=== PATIENT | male | born 1945 | race Caucasian/White ===

== ENCOUNTER 2017-01-01 10:48 | Inpatient (IN) | payer OTHER, MEDICARE ==
[~2017-01-01] VITALS: Ht 175.3 cm; Wt 57.6 kg
[~2017-01-01 10:48] MED LIST: CRESTOR5 MG PO; Coreg PO; Diabeta,Micronase PO; Ecotrin PO; GLUCOPHAGE500 MG PO; HYZAAR 100-21 TABLET PO; PLAVIX75 MG PO
[2017-01-01 11:08] LABS: POINT-OF-CARE METER ID UU14100415
[2017-01-01 12:32] LABS: HEMATOCRIT 40.3 % (38.0-50.0); MCH 30.7 PG (29.0-34.0); MCHC 32.3 G/DL (30.0-36.0); RBC DIS.WIDTH-CV 12.3 % (11.8-14.6); RBC DIS.WIDTH-SD 43.6 % (39-53); RED BLOOD COUNT 4.24 M/uL (4.00-5.50); WHITE BLOOD COUNT 7.1 K/uL (4.1-10.2)
[2017-01-01 12:35] LABS: CHLORIDE 97 mEq/L (99-109); POTASSIUM 3.9 mEq/L (3.7-5.4); SODIUM 138 mEq/L (136-147)
[2017-01-01 12:36] LABS: INTER. NORMALIZED RATIO 1.1; PROTHROMBIN TIME 11.6 (9.2-11.2)
[2017-01-01 12:37] LABS: GLUCOSE 126 mg/dL (70-99)
[2017-01-01 12:38] LABS: ANION GAP 6 MEQ/L (2-14)
[2017-01-01 12:41] LABS: GFR ESTIMATE (CALCULATED) > 59 mL/min/
[2017-01-01 12:42] LABS: UREA NITROGEN (BUN) 12 mg/dL (9-23)
[2017-01-01 12:48] LABS: TROP-I INTERPRETATION NEGATIVE; TROPONIN-I 0.05 ng/mL (0.0-0.30)
[2017-01-01] MEDS ORDERED: COREG6.25 M1 PO (13:22)
[2017-01-01] MEDS ORDERED: ASPIR-LOW81 MG PO (13:22)
[2017-01-01] MEDS ORDERED: NITROGLYCERIN0.4 MG SL (13:23)
[2017-01-01 13:31] LABS: PLAT.SUFFICIENCY DECREASED; PLATELET COUNT 146 K/uL (156-360)
[2017-01-01 15:30] LABS: ADD MIUA? NO; BILIRUBIN NEGATIVE; BLOOD NEGATIVE; COLOR STRAW ((YELLOW)); GLUCOSE (STRIP) NEGATIVE; KETONES NEGATIVE; LEUKOCYTES NEGATIVE; NITRITE NEGATIVE; PROTEIN (STRIP) NEGATIVE; SPECIFIC GRAVITY 1.006 (1.000-1.030); UCUL ADDED? NO; UROBILINOGEN 0.2 MG/DL (0.2-1.0)
[2017-01-01 15:50] VITALS: BP 174/88
[2017-01-01 19:00] VITALS: BP 123/64; BP 78/48; BP 97/61
[2017-01-01 20:17] LABS: POINT-OF-CARE METER ID UU14162513
[2017-01-01 21:02] LABS: TROP-I INTERPRETATION NEGATIVE; TROPONIN-I 0.03 ng/mL (0.0-0.30)
[2017-01-01 23:38] LABS: POINT-OF-CARE METER ID UU13113831
[2017-01-01 23:48] VITALS: BP 102/59
[2017-01-02] VITALS (12 sets, daily range): BP systolic 76–133; BP diastolic 52–68
[2017-01-02 02:41] LABS: TROP-I INTERPRETATION NEGATIVE; TROPONIN-I 0.05 ng/mL (0.0-0.30)
[2017-01-02 05:54] LABS: POINT-OF-CARE METER ID UU13113831
[2017-01-02 06:02] LABS: EOSINOPHIL (%) 1.6 % (0-5); EOSINOPHIL COUNT 0.1 K/uL (0-0.3); HEMATOCRIT 35.9 % (38.0-50.0); IMMATURE GRANULOCYTE (%) 0.1 % (0.0-0.7); INSTRUMENT ABS NEUTROPHIL CT 4.6 K/uL; LYMPHOCYTE COUNT 2.3 K/uL (1.0-2.8); MCH 31.8 PG (29.0-34.0); MCHC 32.9 G/DL (30.0-36.0); MCV 96.8 FL (86-99); MEAN PLAT.VOLUME 12.2 uM^3 (9.0-12.4); MONOCYTE (%) 6.7 % (3-12); MONOCYTE COUNT 0.5 K/uL (0-0.8); NEUTROPHIL (%) 61.1 % (45-76); NEUTROPHIL COUNT 4.6 K/uL (1.8-6.4); PLATELET COUNT 133 K/uL (156-360); RBC DIS.WIDTH-CV 12.8 % (11.8-14.6); RBC DIS.WIDTH-SD 45.1 % (39-53); RED BLOOD COUNT 3.71 M/uL (4.00-5.50); WHITE BLOOD COUNT 7.5 K/uL (4.1-10.2)
[2017-01-02 06:53] LABS: ALKALINE PHOSPHATASE 32 IU/L (3-129); ANION GAP 8 MEQ/L (2-14); CHLORIDE 100 MEQ/L (99-109); DIRECT BILIRUBIN 0.2 mg/dL (0.0-0.3); GFR ESTIMATE (CALCULATED) > 59 mL/min/; POTASSIUM 3.7 MEQ/L (3.7-5.4); SAMPLE HEMOLYSIS CHECK 0; SAMPLE ICTERIC CHECK 0; SAMPLE LIPEMIA CHECK 0; SODIUM 140 MEQ/L (136-147); UREA NITROGEN (BUN) 10 mg/dL (9-23)
[2017-01-02 07:10] LABS: GLUCOSE 81 mg/dL (70-99)
[2017-01-02 17:55] LABS: POINT-OF-CARE METER ID UU14162636; POINT-OF-CARE USER ID 606021424
[2017-01-02 19:25] LABS: ANION GAP 6 MEQ/L (2-14); CHLORIDE 101 MEQ/L (99-109); MAGNESIUM 1.3 mg/dl (1.3-2.7); SAMPLE HEMOLYSIS CHECK 0; SAMPLE ICTERIC CHECK 0; SAMPLE LIPEMIA CHECK 0; SODIUM 137 MEQ/L (136-147)
[2017-01-02 19:30] LABS: GFR ESTIMATE (CALCULATED) > 59 mL/min/; UREA NITROGEN (BUN) 9 mg/dL (9-23)
[2017-01-02 19:31] LABS: GLUCOSE 128 mg/dL (70-99)
[2017-01-02 20:38] LABS: TROP-I INTERPRETATION POSITIVE; TROPONIN-I 1.94 ng/mL (0.0-0.30)
[2017-01-02 21:43] LABS: POINT-OF-CARE METER ID UU14162636
[2017-01-03] VITALS (17 sets, daily range): BP systolic 86–118; BP diastolic 45–62
[2017-01-03 06:38] LABS: EOSINOPHIL (%) 0.9 % (0-5); EOSINOPHIL COUNT 0.1 K/uL (0-0.3); HEMATOCRIT 36.8 % (38.0-50.0); IMMATURE GRANULOCYTE (%) 0.2 % (0.0-0.7); INSTRUMENT ABS NEUTROPHIL CT 5.9 K/uL; LYMPHOCYTE COUNT 1.5 K/uL (1.0-2.8); MCH 31.3 PG (29.0-34.0); MCHC 31.8 G/DL (30.0-36.0); MCV 98.4 FL (86-99); MEAN PLAT.VOLUME 12.4 uM^3 (9.0-12.4); MONOCYTE (%) 7.6 % (3-12); MONOCYTE COUNT 0.6 K/uL (0-0.8); NEUTROPHIL (%) 72.5 % (45-76); NEUTROPHIL COUNT 5.9 K/uL (1.8-6.4); PLATELET COUNT 126 K/uL (156-360); RBC DIS.WIDTH-CV 13.2 % (11.8-14.6); RBC DIS.WIDTH-SD 47.7 % (39-53); RED BLOOD COUNT 3.74 M/uL (4.00-5.50); WHITE BLOOD COUNT 8.1 K/uL (4.1-10.2)
[2017-01-03 06:49] LABS: TROP-I INTERPRETATION POSITIVE; TROPONIN-I 29.84 ng/mL (0.0-0.30)
[2017-01-03 07:00] LABS: CHLORIDE 106 mEq/L (99-109); SODIUM 141 mEq/L (136-147)
[2017-01-03 07:03] LABS: ANION GAP 7 MEQ/L (2-14)
[2017-01-03 07:04] LABS: GLUCOSE 90 mg/dL (70-99)
[2017-01-03 07:05] LABS: GFR ESTIMATE (CALCULATED) > 59 mL/min/
[2017-01-03 07:06] LABS: UREA NITROGEN (BUN) 10 mg/dL (9-23)
[2017-01-03 07:08] LABS: CREATINE KINASE 747 IU/L (1-294); TOTAL CK 747 IU/L (1-294)
[2017-01-03 07:14] LABS: CK-MB 114.6 ng/mL (0.0-4.9)
[2017-01-03 12:14] LABS: POINT-OF-CARE METER ID UU14162636
[2017-01-03 17:37] LABS: POINT-OF-CARE METER ID UU14162636
[2017-01-04 04:00] VITALS: BP 116/73
[2017-01-04 09:00] VITALS: BP 107/58
[2017-01-04 12:26] VITALS: BP 97/70
[2017-01-04 15:24] VITALS: BP 104/58
[2017-01-04 20:25] VITALS: BP 123/64
[2017-01-04 21:16] LABS: POINT-OF-CARE METER ID UU13113781
[2017-01-04 23:11] VITALS: BP 104/58
[2017-01-05 04:40] VITALS: BP 132/73
[2017-01-05 07:06] LABS: HEMATOCRIT 33.5 % (38.0-50.0); MCH 30.9 PG (29.0-34.0); MCHC 31.9 G/DL (30.0-36.0); MCV 96.8 FL (86-99); MEAN PLAT.VOLUME 12.6 uM^3 (9.0-12.4); PLATELET COUNT 117 K/uL (156-360); RBC DIS.WIDTH-CV 12.9 % (11.8-14.6); RBC DIS.WIDTH-SD 46.3 % (39-53); RED BLOOD COUNT 3.46 M/uL (4.00-5.50); WHITE BLOOD COUNT 7.8 K/uL (4.1-10.2)
[2017-01-05 07:08] VITALS: BP 123/69
[2017-01-05 07:48] LABS: ANION GAP 7 MEQ/L (2-14); CHLORIDE 99 MEQ/L (99-109); GFR ESTIMATE (CALCULATED) > 59 mL/min/; GLUCOSE 88 mg/dL (70-99); POTASSIUM 3.9 MEQ/L (3.7-5.4); SAMPLE HEMOLYSIS CHECK 0; SAMPLE ICTERIC CHECK 0; SAMPLE LIPEMIA CHECK 0; SODIUM 139 MEQ/L (136-147); UREA NITROGEN (BUN) 10 mg/dL (9-23)
[2017-01-05 08:43] LABS: Estimated Average Glucose 120 mg/dL (70-123); HEMOGLOBIN A1c (GLYCOHEMOGLOB) 5.8 % HGB (Below 5.7)
[2017-01-05 09:17] LABS: MAGNESIUM 1.4 mg/dl (1.3-2.7)
[2017-01-05 12:27] VITALS: BP 133/70
[2017-01-05 16:15] VITALS: BP 126/65
[2017-01-05 20:45] VITALS: BP 124/69
[2017-01-05 23:51] VITALS: BP 124/75
[2017-01-06 04:32] VITALS: BP 140/83
[2017-01-06 05:59] LABS: EOSINOPHIL COUNT 0.1 K/uL (0-0.3); HEMATOCRIT 33.4 % (38.0-50.0); IMMATURE GRANULOCYTE (%) 0.3 % (0.0-0.7); LYMPHOCYTE COUNT 1.5 K/uL (1.0-2.8); MCH 31.6 PG (29.0-34.0); MCHC 32.9 G/DL (30.0-36.0); MEAN PLAT.VOLUME 13.1 uM^3 (9.0-12.4); MONOCYTE (%) 8.4 % (3-12); MONOCYTE COUNT 0.6 K/uL (0-0.8); NEUTROPHIL (%) 69.8 % (45-76); PLATELET COUNT 113 K/uL (156-360); RBC DIS.WIDTH-CV 12.9 % (11.8-14.6); RBC DIS.WIDTH-SD 45.8 % (39-53); RED BLOOD COUNT 3.48 M/uL (4.00-5.50); WHITE BLOOD COUNT 7.1 K/uL (4.1-10.2)
[2017-01-06 06:23] LABS: ALKALINE PHOSPHATASE 31 IU/L (3-129); ANION GAP 9 MEQ/L (2-14); CHLORIDE 97 MEQ/L (99-109); GFR ESTIMATE (CALCULATED) > 59 mL/min/; GLUCOSE 93 mg/dL (70-99); POTASSIUM 4.1 MEQ/L (3.7-5.4); SAMPLE HEMOLYSIS CHECK 0; SAMPLE ICTERIC CHECK 0; SAMPLE LIPEMIA CHECK 0; SODIUM 139 MEQ/L (136-147); TOTAL BILIRUBIN 0.9 MG/DL (0.0-1.0); UREA NITROGEN (BUN) 11 mg/dL (9-23)
[2017-01-06 07:48] LABS: MAGNESIUM 1.7 mg/dl (1.3-2.7)
[2017-01-06 07:57] LABS: POINT-OF-CARE METER ID UU13113781
[2017-01-06 08:06] VITALS: BP 155/88
[2017-01-06 11:42] VITALS: BP 144/77
[2017-01-06 12:12] LABS: POINT-OF-CARE METER ID UU13113781
[2017-01-06] MEDS ORDERED: LOSARTAN POTASS25 MG PO (13:13)
[2017-01-06 13:47] VITALS: BP 120/77; BP 124/72
== END 2017-01-06 16:28 | disposition home or self-care (01) | DRG 250 ==
LOC: EME 10:48 → EDOF 13:48 → 5WEST 13:48 → EDOF 13:48 → 5WEST 15:41 → 4WEST 01-02 10:35 → 5WEST 01-02 10:35 → 4EAST 01-02 10:35 → 4WEST 01-02 15:45 → 4EAST 01-03 19:43
PROVIDERS: Emergency Medicine; Hospitalist; Internal Medicine; Internal Medicine Cardiovascular Disease; Internal Medicine Critical Care Medicine; Specialist
DX: I21.4 Non-ST elevation (NSTEMI) myocardial infarction (principal); I25.710 Atherosclerosis of autologous vein coronary artery bypass graft(s) with unstable angina pectoris; I25.110 Atherosclerotic heart disease of native coronary artery with unstable angina pectoris; I10 Essential (primary) hypertension; E11.9 Type 2 diabetes mellitus without complications; E78.5 Hyperlipidemia, unspecified; I34.0 Nonrheumatic mitral (valve) insufficiency; I73.9 Peripheral vascular disease, unspecified; I95.1 Orthostatic hypotension; I25.5 Ischemic cardiomyopathy; I45.10 Unspecified right bundle-branch block; E86.0 Dehydration; I27.2 Other secondary pulmonary hypertension; K59.00 Constipation, unspecified; I65.23 Occlusion and stenosis of bilateral carotid arteries; I36.1 Nonrheumatic tricuspid (valve) insufficiency; I49.01 Ventricular fibrillation; E87.8 Other disorders of electrolyte and fluid balance, not elsewhere classified; E83.42 Hypomagnesemia; I25.2 Old myocardial infarction; Z79.84 Long term (current) use of oral hypoglycemic drugs; Z79.82 Long term (current) use of aspirin; Z79.02 Long term (current) use of antithrombotics/antiplatelets
CPT/HCPCS: 71010; 80048; 80048 91; 80053; 80076; 81003; 82550; 82553; 82948; 83036; 83735; 84484; 85025; 85027; 85347; 85610; 87641; 93005; 93306; 93880; 93925; 94760; 94799; 99281; 99285; C1725; C1769; C1887; C1894; G0378; J0153; J0282; J1644; J1815; J2250; J3010; J3246; J3475; J7030; J7050

== ENCOUNTER 2017-01-14 20:45 | Inpatient (IN) | payer OTHER, MEDICARE ==
[~2017-01-14] VITALS: Ht 175.3 cm; Wt 69.3 kg
[~2017-01-14 20:45] MED LIST changes: +ASPIR-LOW81 MG PO; +COREG6.25 M1 PO; +LOSARTAN POTASS25 MG PO; +NITROGLYCERIN0.4 MG SL
[2017-01-14 21:01] LABS: HEMATOCRIT 34.8 % (38.0-50.0); MCH 30.8 PG (29.0-34.0); MCHC 34.5 G/DL (30.0-36.0); RBC DIS.WIDTH-CV 11.6 % (11.8-14.6); RBC DIS.WIDTH-SD 37.1 % (39-53); RED BLOOD COUNT 3.89 M/uL (4.00-5.50); WHITE BLOOD COUNT 7.2 K/uL (4.1-10.2)
[2017-01-14 21:08] LABS: CHLORIDE 80 mEq/L (99-109); POTASSIUM 4.1 mEq/L (3.7-5.4)
[2017-01-14 21:09] LABS: GLUCOSE 151 mg/dL (70-99)
[2017-01-14 21:11] LABS: ANION GAP 7 MEQ/L (2-14)
[2017-01-14 21:12] LABS: MCV 89.5 FL (86-99)
[2017-01-14 21:13] LABS: GFR ESTIMATE (CALCULATED) > 59 mL/min/
[2017-01-14 21:14] LABS: UREA NITROGEN (BUN) 8 mg/dL (9-23)
[2017-01-14 21:20] LABS: TROP-I INTERPRETATION NEGATIVE; TROPONIN-I 0.11 ng/mL (0.0-0.30)
[2017-01-14 21:29] LABS: SODIUM 114 mEq/L (136-147)
[2017-01-14 21:36] LABS: MEAN PLAT.VOLUME 11.8 uM^3 (9.0-12.4)
[2017-01-14 21:43] LABS: D-DIMER ELISA 1.51 mg/L FEU (< 0.57)
[2017-01-14 21:49] LABS: PLATELET COUNT 205 K/uL (156-360)
[2017-01-14] MEDS ORDERED: TYLENOL EXTRA500 MG PO (22:02)
[2017-01-14] MEDS ORDERED: LOSARTAN POTASS25 MG PO (22:02)
[2017-01-14 22:36] LABS: ADD MIUA? YES; BILIRUBIN NEGATIVE; BLOOD SMALL; COLOR YELLOW ((YELLOW)); GLUCOSE (STRIP) 50; KETONES NEGATIVE; LEUKOCYTES NEGATIVE; NITRITE NEGATIVE; PROTEIN (STRIP) 30; SPECIFIC GRAVITY 1.018 (1.000-1.030)
[2017-01-14 22:50] LABS: BACTERIA NONE SEEN /HPF; EPITHELIAL CELLS NONE SEEN /HPF; MUCUS TRACE /LPF; UCUL ADDED? NO; WHITE BLOOD CELLS 0-5 /HPF (0-5)
[2017-01-14 22:59] VITALS: BP 134/79
[2017-01-14 23:00] VITALS: BP 134/79
[2017-01-14 23:45] LABS: POINT-OF-CARE METER ID UU13113803
[2017-01-15] VITALS (24 sets, daily range): BP systolic 76–138; BP diastolic 41–81
[2017-01-15 00:58] LABS: METH RESISTANT S AUREUS PCR NEGATIVE (NEGATIVE)
[2017-01-15 01:01] LABS: PROBE CHECK PASS; SPECIMEN PROCESSING CONTROL PASS
[2017-01-15 02:14] LABS: CHLORIDE 79 mEq/L (99-109); POTASSIUM 4.4 mEq/L (3.7-5.4)
[2017-01-15 02:16] LABS: GLUCOSE 127 mg/dL (70-99)
[2017-01-15 02:17] LABS: ANION GAP 6 MEQ/L (2-14)
[2017-01-15 02:19] LABS: GFR ESTIMATE (CALCULATED) > 59 mL/min/
[2017-01-15 02:20] LABS: UREA NITROGEN (BUN) 8 mg/dL (9-23)
[2017-01-15 02:25] LABS: SODIUM 116 mEq/L (136-147)
[2017-01-15 05:02] LABS: CHLORIDE 81 mEq/L (99-109); POTASSIUM 4.1 mEq/L (3.7-5.4); SODIUM 120 mEq/L (136-147)
[2017-01-15 05:03] LABS: GLUCOSE 118 mg/dL (70-99)
[2017-01-15 05:05] LABS: ANION GAP 8 MEQ/L (2-14)
[2017-01-15 05:07] LABS: GFR ESTIMATE (CALCULATED) > 59 mL/min/
[2017-01-15 05:08] LABS: UREA NITROGEN (BUN) 7 mg/dL (9-23)
[2017-01-15 06:12] LABS: HEMATOCRIT 34.1 % (38.0-50.0); MCH 32.4 PG (29.0-34.0); MCHC 35.2 G/DL (30.0-36.0); MCV 92.2 FL (86-99); RBC DIS.WIDTH-CV 11.9 % (11.8-14.6); RBC DIS.WIDTH-SD 40.2 % (39-53); WHITE BLOOD COUNT 6.8 K/uL (4.1-10.2)
[2017-01-15 06:40] LABS: ANION GAP 5 MEQ/L (2-14); CHLORIDE 84 MEQ/L (99-109); GFR ESTIMATE (CALCULATED) > 59 mL/min/; GLUCOSE 116 mg/dL (70-99); SAMPLE HEMOLYSIS CHECK 0; SAMPLE ICTERIC CHECK 0; SAMPLE LIPEMIA CHECK 0; UREA NITROGEN (BUN) 7 mg/dL (9-23)
[2017-01-15 06:44] LABS: SODIUM 116 MEQ/L (136-147)
[2017-01-15 07:17] LABS: MEAN PLAT.VOLUME 12.3 uM^3 (9.0-12.4); PLAT.SUFFICIENCY DECREASED; PLATELET COUNT 139 K/uL (156-360)
[2017-01-15 08:29] LABS: ADD MIUA? YES; BILIRUBIN NEGATIVE; BLOOD LARGE; COLOR YELLOW ((YELLOW)); GLUCOSE (STRIP) NEGATIVE; KETONES NEGATIVE; LEUKOCYTES NEGATIVE; NITRITE NEGATIVE; PROTEIN (STRIP) NEGATIVE; SPECIFIC GRAVITY 1.008 (1.000-1.030); UROBILINOGEN 0.2 MG/DL (0.2-1.0)
[2017-01-15 08:40] LABS: BACTERIA NONE SEEN /HPF; EPITHELIAL CELLS NONE SEEN /HPF; MUCUS NONE SEEN /LPF; RED BLOOD CELLS 20-30 /HPF (0-5)
[2017-01-15 08:57] LABS: UR CREATININE CONCENTRATION 47.6 MG/DL
[2017-01-15 09:29] LABS: ANION GAP 3 MEQ/L (2-14); CHLORIDE 84 MEQ/L (99-109); POTASSIUM 3.9 MEQ/L (3.7-5.4); SAMPLE HEMOLYSIS CHECK 0; SAMPLE ICTERIC CHECK 0; SAMPLE LIPEMIA CHECK 0; SODIUM 121 MEQ/L (136-147)
[2017-01-15 09:34] LABS: GFR ESTIMATE (CALCULATED) > 59 mL/min/; GLUCOSE 106 mg/dL (70-99); UREA NITROGEN (BUN) 7 mg/dL (9-23); URIC ACID 1.8 mg/dL (3.1-9.2)
[2017-01-15 10:50] LABS: MAGNESIUM 1.2 mg/dl (1.3-2.7)
[2017-01-15 13:21] LABS: ANION GAP 2 MEQ/L (2-14); CHLORIDE 83 MEQ/L (99-109); GFR ESTIMATE (CALCULATED) > 59 mL/min/; GLUCOSE 118 mg/dL (70-99); SAMPLE HEMOLYSIS CHECK 0; SAMPLE ICTERIC CHECK 0; SAMPLE LIPEMIA CHECK 0; SODIUM 120 MEQ/L (136-147); UREA NITROGEN (BUN) 7 mg/dL (9-23)
[2017-01-15 16:48] LABS: CHLORIDE 85 MEQ/L (99-109); GFR ESTIMATE (CALCULATED) > 59 mL/min/; GLUCOSE 133 mg/dL (70-99); SAMPLE HEMOLYSIS CHECK 0; SAMPLE ICTERIC CHECK 0; SAMPLE LIPEMIA CHECK 0; SODIUM 120 MEQ/L (136-147); UREA NITROGEN (BUN) 8 mg/dL (9-23)
[2017-01-15 16:49] LABS: ANION GAP 1 MEQ/L (2-14)
[2017-01-15 20:39] LABS: ANION GAP 4 MEQ/L (2-14); CHLORIDE 83 MEQ/L (99-109); POTASSIUM 3.9 MEQ/L (3.7-5.4); SAMPLE HEMOLYSIS CHECK 0; SAMPLE ICTERIC CHECK 0; SAMPLE LIPEMIA CHECK 0; SODIUM 120 MEQ/L (136-147)
[2017-01-15 20:45] LABS: GFR ESTIMATE (CALCULATED) > 59 mL/min/; GLUCOSE 134 mg/dL (70-99); UREA NITROGEN (BUN) 8 mg/dL (9-23)
[2017-01-16] VITALS (26 sets, daily range): BP systolic 81–122; BP diastolic 38–80
[2017-01-16 01:34] LABS: CHLORIDE 84 mEq/L (99-109); POTASSIUM 4.1 mEq/L (3.7-5.4); SODIUM 123 mEq/L (136-147)
[2017-01-16 01:36] LABS: GLUCOSE 118 mg/dL (70-99)
[2017-01-16 01:37] LABS: ANION GAP 5 MEQ/L (2-14)
[2017-01-16 01:40] LABS: GFR ESTIMATE (CALCULATED) > 59 mL/min/
[2017-01-16 01:41] LABS: UREA NITROGEN (BUN) 8 mg/dL (9-23)
[2017-01-16 06:45] LABS: HEMATOCRIT 33.1 % (38.0-50.0); MCH 31.5 PG (29.0-34.0); MCHC 33.2 G/DL (30.0-36.0); MCV 94.8 FL (86-99); RBC DIS.WIDTH-CV 12.1 % (11.8-14.6); RBC DIS.WIDTH-SD 41.9 % (39-53); RED BLOOD COUNT 3.49 M/uL (4.00-5.50)
[2017-01-16 06:47] LABS: PLATELET COUNT 187 K/uL (156-360)
[2017-01-16 06:49] LABS: ANION GAP 3 MEQ/L (2-14); CHLORIDE 84 MEQ/L (99-109); GFR ESTIMATE (CALCULATED) > 59 mL/min/; GLUCOSE 101 mg/dL (70-99); POTASSIUM 3.9 MEQ/L (3.7-5.4); SAMPLE HEMOLYSIS CHECK 0; SAMPLE ICTERIC CHECK 0; SAMPLE LIPEMIA CHECK 0; SODIUM 125 MEQ/L (136-147); UREA NITROGEN (BUN) 7 mg/dL (9-23)
[2017-01-16 10:06] LABS: ANION GAP 2 MEQ/L (2-14); CHLORIDE 83 MEQ/L (99-109); GFR ESTIMATE (CALCULATED) > 59 mL/min/; GLUCOSE 110 mg/dL (70-99); MAGNESIUM 1.3 mg/dl (1.3-2.7); POTASSIUM 4.3 MEQ/L (3.7-5.4); SAMPLE HEMOLYSIS CHECK 0; SAMPLE ICTERIC CHECK 0; SAMPLE LIPEMIA CHECK 0; SODIUM 123 MEQ/L (136-147); UREA NITROGEN (BUN) 8 mg/dL (9-23)
[2017-01-16 13:00] LABS: ANION GAP 2 MEQ/L (2-14); CHLORIDE 82 MEQ/L (99-109); GFR ESTIMATE (CALCULATED) > 59 mL/min/; GLUCOSE 158 mg/dL (70-99); SAMPLE HEMOLYSIS CHECK 0; SAMPLE ICTERIC CHECK 0; SAMPLE LIPEMIA CHECK 0; SODIUM 122 MEQ/L (136-147); UREA NITROGEN (BUN) 8 mg/dL (9-23)
[2017-01-16 17:19] LABS: BASE EXCESS 6.8 mEq/L (-3 to +3); BICARBONATE 38.1 mEq/L (22-26); CARBOXY HGB 2.2 % (0-5); METHEMOGLOBIN 1.5 % (0-1.5); PCO2 102 mm Hg (35-45); PO2 98 mm Hg (80-100)
[2017-01-16 17:20] LABS: COMMENTS - BLOOD GASES C+; DEVICE NC; O2 FLOW 2 L/MIN; SITE RR; pH 7.18 (7.35-7.45)
[2017-01-16 17:28] LABS: POINT-OF-CARE METER ID UU13113803
[2017-01-16 17:47] LABS: ANION GAP 2 MEQ/L (2-14); CHLORIDE 85 MEQ/L (99-109); GFR ESTIMATE (CALCULATED) > 59 mL/min/; GLUCOSE 207 mg/dL (70-99); SAMPLE HEMOLYSIS CHECK 0; SAMPLE ICTERIC CHECK 0; SAMPLE LIPEMIA CHECK 0; SODIUM 122 MEQ/L (136-147); UREA NITROGEN (BUN) 9 mg/dL (9-23)
[2017-01-16 18:48] LABS: BASE EXCESS 9.5 mEq/L (-3 to +3); BICARBONATE 35.5 mEq/L (22-26); METHEMOGLOBIN 1.5 % (0-1.5); PO2 89 mm Hg (80-100)
[2017-01-16 18:49] LABS: COMMENTS - BLOOD GASES C+; DEVICE VENT; FI02 40 %; MODE SPON; PCO2 56 mm Hg (35-45); PEEP 7 CM/H20; PRES. SUPPORT 15 CM/H2O; SITE RR; TOTAL RESP RATE 24 resp/min; pH 7.41 (7.35-7.45)
[2017-01-16 20:28] LABS: ANION GAP 3 MEQ/L (2-14); CHLORIDE 89 MEQ/L (99-109); GFR ESTIMATE (CALCULATED) > 59 mL/min/; GLUCOSE 160 mg/dL (70-99); POTASSIUM 3.8 MEQ/L (3.7-5.4); SAMPLE HEMOLYSIS CHECK 0; SAMPLE ICTERIC CHECK 0; SAMPLE LIPEMIA CHECK 0; SODIUM 125 MEQ/L (136-147); UREA NITROGEN (BUN) 8 mg/dL (9-23)
[2017-01-17] VITALS (24 sets, daily range): BP systolic 92–144; BP diastolic 47–74
[2017-01-17 14:41] LABS: CREATINE KINASE 12 IU/L (1-294); TOTAL CK 12 IU/L (1-294)
[2017-01-17 14:43] LABS: MAGNESIUM 1.7 mg/dl (1.3-2.7)
[2017-01-17 14:59] LABS: CK-MB 1.9 ng/mL (0.0-4.9)
[2017-01-17 15:02] LABS: TROP-I INTERPRETATION NEGATIVE; TROPONIN-I 0.14 ng/mL (0.0-0.30)
[2017-01-18] VITALS (15 sets, daily range): BP systolic 62–118; BP diastolic 32–70
[2017-01-18 01:34] LABS: CREATINE KINASE 113 IU/L (1-294); TOTAL CK 113 IU/L (1-294)
[2017-01-18 01:39] LABS: TROP-I INTERPRETATION POSITIVE; TROPONIN-I 1.79 ng/mL (0.0-0.30)
[2017-01-18 06:32] LABS: TROP-I INTERPRETATION POSITIVE; TROPONIN-I 2.53 ng/mL (0.0-0.30)
[2017-01-18 06:50] LABS: CK-MB 38.6 ng/mL (0.0-4.9)
[2017-01-18 06:52] LABS: CREATINE KINASE 112 IU/L (1-294); TOTAL CK 112 IU/L (1-294)
[2017-01-18 09:35] LABS: EOSINOPHIL (%) 0 % (0-5); HEMATOCRIT 35.4 % (38.0-50.0); IMMATURE GRANULOCYTE (%) 0.6 % (0.0-0.7); IMMATURE GRANULOCYTE COUNT 0.1 K/uL; INSTRUMENT ABS NEUTROPHIL CT 7.4 K/uL; LYMPHOCYTE COUNT 0.9 K/uL (1.0-2.8); MCH 31.8 PG (29.0-34.0); MCHC 32.2 G/DL (30.0-36.0); MCV 98.6 FL (86-99); MEAN PLAT.VOLUME 11.8 uM^3 (9.0-12.4); MONOCYTE (%) 8.1 % (3-12); MONOCYTE COUNT 0.7 K/uL (0-0.8); NEUTROPHIL (%) 81.7 % (45-76); NEUTROPHIL COUNT 7.4 K/uL (1.8-6.4); PLATELET COUNT 166 K/uL (156-360); RBC DIS.WIDTH-CV 13.2 % (11.8-14.6); RBC DIS.WIDTH-SD 47.2 % (39-53); RED BLOOD COUNT 3.59 M/uL (4.00-5.50); WHITE BLOOD COUNT 9.1 K/uL (4.1-10.2)
[2017-01-18 09:37] LABS: ANION GAP 8 MEQ/L (2-14); GFR ESTIMATE (CALCULATED) > 59 mL/min/; GLUCOSE 125 mg/dL (70-99); POTASSIUM 3.9 MEQ/L (3.7-5.4); SAMPLE HEMOLYSIS CHECK 0; SAMPLE ICTERIC CHECK 0; SAMPLE LIPEMIA CHECK 0; UREA NITROGEN (BUN) 11 mg/dL (9-23)
[2017-01-18 09:39] LABS: CHLORIDE 99 MEQ/L (99-109); SODIUM 137 MEQ/L (136-147)
[2017-01-18 13:34] LABS: CREATINE KINASE 155 IU/L (1-294); TOTAL CK 155 IU/L (1-294)
[2017-01-18 13:39] LABS: TROP-I INTERPRETATION POSITIVE; TROPONIN-I 3.44 ng/mL (0.0-0.30)
[2017-01-18 13:45] LABS: CK-MB 38.1 ng/mL (0.0-4.9)
[2017-01-18 16:41] LABS: BASE EXCESS 5.4 mEq/L (-3 to +3); BICARBONATE 32.9 mEq/L (22-26); CARBOXY HGB 2.3 % (0-5); METHEMOGLOBIN 1.5 % (0-1.5); pH 7.34 (7.35-7.45)
[2017-01-18 16:42] LABS: COMMENTS - BLOOD GASES +C; DEVICE PB840; FI02 100 %; MECHANICAL RATE 14 resp/min; MODE AC; PCO2 61 mm Hg (35-45); PO2 53 mm Hg (80-100); SITE RR +A; TOTAL RESP RATE 26 resp/min
[2017-01-18 16:43] LABS: PEEP 15 CM/H20; TIDAL VOLUME 500 ML
[2017-01-18 16:50] LABS: EOSINOPHIL (%) 0.1 % (0-5); HEMATOCRIT 37.8 % (38.0-50.0); IMMATURE GRANULOCYTE (%) 0.4 % (0.0-0.7); IMMATURE GRANULOCYTE COUNT 0.1 K/uL; INSTRUMENT ABS NEUTROPHIL CT 8.9 K/uL; LYMPHOCYTE COUNT 1.2 K/uL (1.0-2.8); MCH 31.4 PG (29.0-34.0); MCHC 31.7 G/DL (30.0-36.0); MEAN PLAT.VOLUME 11.4 uM^3 (9.0-12.4); NEUTROPHIL (%) 79.9 % (45-76); NEUTROPHIL COUNT 8.9 K/uL (1.8-6.4); PLATELET COUNT 207 K/uL (156-360); RBC DIS.WIDTH-CV 13.2 % (11.8-14.6); RBC DIS.WIDTH-SD 47.9 % (39-53); RED BLOOD COUNT 3.82 M/uL (4.00-5.50); WHITE BLOOD COUNT 11.1 K/uL (4.1-10.2)
[2017-01-18 16:59] LABS: POTASSIUM 3.9 mEq/L (3.7-5.4); SODIUM 136 mEq/L (136-147)
[2017-01-18 17:00] LABS: MAGNESIUM 1.9 mg/dL (1.3-2.7)
[2017-01-18 17:03] LABS: ANION GAP 9 MEQ/L (2-14); TOTAL BILIRUBIN 0.9 mg/dL (0.0-1.0)
[2017-01-18 17:04] LABS: CHLORIDE 97 mEq/L (99-109); GLUCOSE 237 mg/dL (70-99)
[2017-01-18 17:05] LABS: ALKALINE PHOSPHATASE 34 IU/L (3-129); GFR ESTIMATE (CALCULATED) > 59 mL/min/
[2017-01-18 17:06] LABS: UREA NITROGEN (BUN) 13 mg/dL (9-23)
[2017-01-18 17:07] LABS: DIRECT BILIRUBIN 0.4 mg/dL (0.0-0.3)
[2017-01-18 17:08] LABS: CREATINE KINASE 166 IU/L (1-294); TOTAL CK 166 IU/L (1-294)
[2017-01-18 17:17] LABS: TROP-I INTERPRETATION POSITIVE; TROPONIN-I 4.28 ng/mL (0.0-0.30)
[2017-01-18 17:18] LABS: INTER. NORMALIZED RATIO 1.2; PTT 25.7 (25-32)
== END 2017-01-18 19:10 | DRG 208 ==
LOC: EME → EDBD 20:45 → EDOF 22:14 → 4WEST 22:14
PROVIDERS: Emergency Medicine; Hospitalist; Internal Medicine Critical Care Medicine; Internal Medicine Nephrology
DX: J18.9 Pneumonia, unspecified organism (principal); E87.1 Hypo-osmolality and hyponatremia; I21.4 Non-ST elevation (NSTEMI) myocardial infarction; I44.2 Atrioventricular block, complete; I46.9 Cardiac arrest, cause unspecified; R57.9 Shock, unspecified; Z66 Do not resuscitate; Z51.5 Encounter for palliative care; I25.10 Atherosclerotic heart disease of native coronary artery without angina pectoris; I25.2 Old myocardial infarction; E11.9 Type 2 diabetes mellitus without complications; I10 Essential (primary) hypertension; Z95.1 Presence of aortocoronary bypass graft; Z95.5 Presence of coronary angioplasty implant and graft; J90 Pleural effusion, not elsewhere classified; R62.7 Adult failure to thrive; I25.5 Ischemic cardiomyopathy; I45.2 Bifascicular block; R09.02 Hypoxemia; D64.9 Anemia, unspecified
CPT/HCPCS: 36600; 71010; 71020; 71250; 80048; 80048 91; 80053; 81003; 82248; 82533 91; 82550; 82550 91; 82553; 82570; 82575; 82803; 82948; 83735; 83930; 83935; 84100; 84156; 84300; 84439; 84443; 84484; 84550; 85025; 85025 91; 85027; 85379; 85610; 85730; 87040; 87641; 92610 GN; 93005; 94002; 94003; 94010; 94640; 94640 76; 94799; 99202; 99281; 99284; J0461; J1265; J1644; J1650; J1940; J2060; J2250; J2543; J3010; J3475; J7030; J7050; P9045